=== PATIENT | male | born 2005 | race Caucasian/White ===

== ENCOUNTER 2024-08-02 22:36 | Emergency (ER) | payer OTHER, BC ==
[~2024-08-02] VITALS: Ht 180.3 cm; Wt 130.0 kg
[~2024-08-02 22:36] MED LIST: CIPRO500 MG PO; EPINEPHrine HCL 1 MG/10 ML SYR IV SCH; ESCITALOPRAM OX10 MG PO; ESCITALOPRAM OX20 MG PO; NOREPINEPHRINE BITARTRATE 250 ML IV SCH
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
[2024-08-02] MEDS ORDERED: NOREPINEPHRINE BITARTRATE 250 ML IV ONE (22:51)
[2024-08-02] MEDS ORDERED: Sodium Chloride 3% 500 ML IV ONE (22:55)
[2024-08-02] MEDS ORDERED: EPINEPHRINE HCL IV SCH (22:55)
[2024-08-02] MEDS ORDERED: DEXTROSE 5% IV SCH ×2 (22:55→23:15)
[2024-08-02] MEDS ORDERED: MANNITOL 20% 100 GM/500 ML BAG IV ONE (23:00)
[2024-08-02] MEDS ORDERED: PHENYLEPHRINE HCL 10 MG/ML VIAL ONE ×3 (23:08→23:13)
[2024-08-02] MEDS ORDERED: PHENYLEPHRINE HCL IV SCH (23:15)
[2024-08-02 23:16] LABS: HEMOGLOBIN 7.5 g/dL (12.0-18.0); LYMPHOCYTES 62.2 % (24-44)
[2024-08-02 23:19] LABS: BASOPHILS 0.4 % (0-2); EOSINOPHILS 1.6 % (0-6); HEMATOCRIT 23.1 % (35.0-50.0); MCH 31.3 (27-36); MCHC 32.5 g/dl (30-36); MCV 96.3 fl (81-99); MONOCYTES 3.9 % (0-12); NEUTROPHILS 31.9 % (39-80); PLATELET COUNT 55 K/uL (140-440); RDW 14.3 (10.5-15.0)
[2024-08-02] MEDS ORDERED: D5W IV SCH (23:25)
[2024-08-02] MEDS ORDERED: DOPAMINE IV SCH (23:25)
[2024-08-02] MEDS ORDERED: CEFTRIAXONE/SODIUM CHLORIDE 2 GM/100 ML PIGGYBACK IV ONE (23:45)
[2024-08-02] MEDS ORDERED: DIPHTH,PERTUSS(ACELL),TET VAC 0.5 ML SYRINGE IM ONE (23:45)
[2024-08-03] LABS: ALBUMIN 1.2 g/dL (3.4-5.0); ALBUMIN/GLOBULIN RATIO 0.8 (1.1-2.4); ANION GAP 30.3 (7-21); BILIRUBIN, TOTAL 0.2 ng/dL (0.2-1.0); BUN/CREATININE RATIO 10.44 (6.0-28.6); CALCIUM 6.6 mg/dL (8.5-10.1); CREATININE, SERUM 0.67 mg/dL (0.70-1.30); POTASSIUM 6.3 mmol/L (3.5-5.1); PROTEIN, TOTAL 2.7 g/dL (6.4-8.2)
[2024-08-03] MEDS ORDERED: EPINEPHrine HCL 1 MG/10 ML SYR IV PRN
[2024-08-03] MEDS ORDERED: SODIUM BICARBONATE 50 MEQ/50 ML VIAL ONE (00:11)
[2024-08-03] MEDS ORDERED: DIPHTH,PERTUSS(ACELL),TET VAC 0.5 ML SYRINGE IM ONE (00:15)
[2024-08-03] MEDS ORDERED: BICALUTAMIDE 50 MG TAB PO ONE (00:15)
[2024-08-03] MEDS ORDERED: Insulin Regular, Human 100 UNIT/ML ML IV ONE (00:15)
[2024-08-03] MEDS ORDERED: Calcium Gluconate in NS 1,000 MG/50 ML BAG IV ONE (00:15)
[2024-08-03] MEDS ORDERED: ALBUTEROL SULFATE 0.083% 3 ML VIAL INH ONE (00:15)
[2024-08-03] MEDS ORDERED: DEXTROSE 50% 50 ML SYR IV ONE (00:15)
[2024-08-03] MEDS ORDERED: SODIUM BICARBONATE 150 MEQ in DEXTROSE 5% 1,000 ML IV SCH (00:15)
[2024-08-03] MEDS ORDERED: NOREPINEPHRINE BITARTRATE 250 ML IV ONE (00:18)
[2024-08-03] MEDS ORDERED: DOPamine 400 MG/D5W 250 ML IV ONE (00:20)
[2024-08-03] MEDS ORDERED: SODIUM BICARBONATE 50 MEQ/50 ML SYR IV SCH (00:30)
[2024-08-03 02:13] LABS: ABO O; RH POSITIVE
[2024-08-03 02:14] LABS: ANTIBODY SCREEN NEGATIVE; IS CROSSMATCH COMPATIBLE
[2024-08-03] MEDS ORDERED: ATROPINE SULFATE 1 MG/10 ML SYR IV SCH (03:00)
[2024-08-03 04:05] VITALS: BP 000/00
[2024-08-03] MEDS ORDERED: ATROPINE SULFATE 1 MG/10 ML SYR IV ONE (06:45)
[2024-08-03] MEDS ORDERED: LACTATED RINGER'S 1,000 ML IV SCH (07:00)
[2024-08-03] MEDS ORDERED: SODIUM CHLORIDE 3% IV SCH (07:00)
[2024-08-03] MEDS ORDERED: SODIUM CHLORIDE 0.9% 1,000 ML IV PRN (07:00)
[2024-08-03] MEDS ORDERED: CALCIUM CHLORIDE 1,000 MG/10 ML SYR IV ONE (07:00)
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
[2024-08-04 17:13] LABS: HIV 1,2 COMBO ANTIGEN/ANTIBODY Negative (Negative)
[2024-08-04 17:51] LABS: HEPATITIS A ANTIBODY, IGM Negative (Negative); HEPATITIS B CORE ANTIBODY, IGM Negative (Negative); HEPATITIS B SURFACE ANTIGEN Negative (Negative); HEPATITIS C AB CIA INTERP Negative (Negative); HEPATITIS C ANTIBODY CIA INDEX 0.12 IV (())
== END 2024-08-03 04:05 ==
LOC: ED 22:36
PROVIDERS: Family Medicine
DX: S27.1XXA Traumatic hemothorax, initial encounter (principal); S72.322 Displaced transverse fracture of shaft of left femur; S82.54XB Nondisplaced fracture of medial malleolus of right tibia, initial encounter for open fracture type I or II; S22.41XA Multiple fractures of ribs, right side, initial encounter for closed fracture; S02.113A Unspecified occipital condyle fracture, initial encounter for closed fracture; S92.144A Nondisplaced dome fracture of right talus, initial encounter for closed fracture; S82.54XA Nondisplaced fracture of medial malleolus of right tibia, initial encounter for closed fracture; S36.113A Laceration of liver, unspecified degree, initial encounter; S27.339A Laceration of lung, unspecified, initial encounter; S36.039A Unspecified laceration of spleen, initial encounter; S01.01XA Laceration without foreign body of scalp, initial encounter; S25.00XA Unspecified injury of thoracic aorta, initial encounter; S36.299A Other injury of unspecified part of pancreas, initial encounter; S22.5XXA Flail chest, initial encounter for closed fracture; I26.99 Other pulmonary embolism without acute cor pulmonale; M12.562 Traumatic arthropathy, left knee; M12.561 Traumatic arthropathy, right knee; I21.9 Acute myocardial infarction, unspecified; V89.2XXA Person injured in unspecified motor-vehicle accident, traffic, initial encounter; Z79.899 Other long term (current) drug therapy
CPT/HCPCS: 31500; 31720; 32551; 36415; 36556; 70450; 71045; 71260; 72125; 73700; 74177; 80053; 80074; 80307; 83605; 85025; 85060; 86850; 86900; 86901; 86922; 92950; 94002; 94003; 94799; 99285-25; G0480; J0171; J0461; J0696; J1265; J2371; J7121; J7131; P9016; P9059; Q9967